=== PATIENT | female | born 1995 | race Caucasian/White ===

== ENCOUNTER → 2016-09-15 | Outpatient (CLI) | payer OTHER ==
[~2016-09-15] MED LIST: DROS1TAB21 PO; DROS1TAB24 PO
[2016-09-18 00:51] LABS: CHLAMYDIA TRACH RNA*** NOT DETECTED (NOT DETECTED); GC (NEIS GONORRHOEAE)RNA** NOT DETECTED (NOT DETECTED)
== END | disposition home or self-care (01) ==
LOC: C.LABSPEC 16:12
PROVIDERS: ATTEND Obstetrics & Gynecology
DX: Z11.3 Encounter for screening for infections with a predominantly sexual mode of transmission (principal)

== ENCOUNTER 2016-11-26 00:45 | Emergency (ER) | payer OTHER ==
[~2016-11-26] VITALS: Ht 160 cm; Wt 74.4 kg
[~2016-11-26 00:45] MED LIST changes: -DROS1TAB24 PO
[2016-11-26 00:50] VITALS: TEMP 36.9; Ht 160 cm; Wt 74.4 kg
[2016-11-26] MEDS ORDERED: SODIUM CHLORIDE 0.9% 1000ML 1,000 ML IV STA (01:26)
[2016-11-26] MEDS ORDERED: ONDANSETRON INJ 2 MG/ML 2 ML VIAL IV STA ×2 (01:26)
--- NOTE | 2016-11-26 01:27 | EMERGENCY ROOM VISIT NOTE ---
History Report prepared by Candace: Jayde Kahn Under the Supervision of: Dr. Sofiay Kelly D.O. First contact with patient: 00:54 Chief Complaint: VOMITING Stated Complaint: VOMITING,POSSILBE BLOOD IN IT,FEVER Nursing Triage Summary: pt vomiting since 2100, every 10 minutes. per aunt, "it looks like there is blood in it". pt reports abd pain, n/v, denies diarrhea. History of Present Illness The patient is a 21 year old female who presents to the Emergency Room with complaints of intermittent vomiting for the past 4 hours. She estimates that she was vomiting every 5 minutes but states that it has gradually slowed down. The last 3 times she has vomited it has been orange/brown with red streaks in it. Her aunt states that it looked like there could have been some blood in her emesis. The patient notes abdominal pain that she thinks is secondary to vomiting. She rates her current pain as a 5/10 in severity. The patient states that she was feeling fine all day and thinks that her symptoms are related to something that she ate. She had a turkey sandwich with [place] dressing for lunch and a Marnie bar and artichoke dip for dinner around 8pm (1 hour before her symptoms began). She denies diarrhea and leg cramping or swelling. She denies any alcohol use in the past two days. She denies any sick contacts. Her LNMP was two weeks ago. 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 A total of 10 systems reviewed and were otherwise negative. Past Medical & Surgical Medical Problems: (1) PNA (pneumonia) (2) Seasonal allergies Surgical Problems: (1) History of nasal surgery Family History Diabetes mellitus FHx: cancer Social History Smoking Status: Never Smoker Smokeless Tobacco Use: No Alcohol Use: none Marital Status: single Housing Status: lives with roommate Occupation Status: [employer] student Current/Historical Medications Scheduled Drospirenone-Ethinyl Estradiol (Crista), 1 TAB PO DAILY Allergies Coded Allergies: No Known Allergies (Unverified , 11/26/16) Physical Exam Vital Signs Date Time Temp Pulse Resp B/P Pulse Ox O2 Delivery O2 Flow Rate FiO2 3/31/17 02:59 94 20 122/82 97 Room Air 11/26/16 00:50 36.9 111 18 122/82 95 Room Air Physical Exam HEENT: Head - normocephalic and atraumatic Pupils are equal, round, and reactive to light. Extraocular eye muscles are intact, and sclera are anicteric. Nose - moist nasal mucosa without discharge. Mouth - moist buccal mucosa. Oropharynx is nonerythematous and there is no tonsillar exudate or edema noted. Neck: Supple; no JVD, nuchal rigidity, cervical lymphadenopathy. Heart: Regular rate and rhythm. There is a normal S1 and S2 with no murmurs, clicks, or gallops appreciated. Lungs: Clear to auscultation bilaterally with no wheezes, rales, or rhonchi. Abdomen: Soft, epigastric pain with palpation, nondistended, with good bowel sounds. There are no palpable pulsatile masses or hepatosplenomegaly. There is no guarding, rigidity, or rebound noted. Extremities: No evidence of cyanosis, clubbing, or edema. There are easily palpable peripheral pulses. Skin: warm and dry with good turgor and no rashes. Medical Decision & Procedures Laboratory Results 11/26/16 01:45 Red Blood Count 4.83, Mean Corpuscular Volume 79.3, Mean Corpuscular Hemoglobin 26.5, Mean Corpuscular Hemoglobin Concent 33.4, Mean Platelet Volume 8.9, Neutrophils (%) (Auto) 87.6, Lymphocytes (%) (Auto) 5.9, Monocytes (%) (Auto) 5.7, Eosinophils (%) (Auto) 0.3, Basophils (%) (Auto) 0.2, Neutrophils # (Auto) 13.33, Lymphocytes # (Auto) 0.89, Monocytes # (Auto) 0.87, Eosinophils # (Auto) 0.04, Basophils # (Auto) 0.03 11/26/16 01:45 Test 11/26/16 01:45 11/26/16 02:52 White Blood Count 15.20 K/uL (4.8-10.8) Red Blood Count 4.83 M/uL (4.2-5.4) Hemoglobin 12.8 g/dL (12.0-16.0) Hematocrit 38.3 % (37-47) Mean Corpuscular Volume 79.3 fL (80-100) Mean Corpuscular Hemoglobin 26.5 pg (25-34) Mean Corpuscular Hemoglobin Concent 33.4 g/dl (32-36) Platelet Count 324 K/uL (130-400) Mean Platelet Volume 8.9 fL (7.4-10.4) Neutrophils (%) (Auto) 87.6 % Lymphocytes (%) (Auto) 5.9 % Monocytes (%) (Auto) 5.7 % Eosinophils (%) (Auto) 0.3 % Basophils (%) (Auto) 0.2 % Neutrophils # (Auto) 13.33 K/uL (1.4-6.5) Lymphocytes # (Auto) 0.89 K/uL (1.2-3.4) Monocytes # (Auto) 0.87 K/uL (0.11-0.59) Eosinophils # (Auto) 0.04 K/uL (0-0.5) Basophils # (Auto) 0.03 K/uL (0-0.2) RDW Standard Deviation 36.5 fL (36.4-46.3) RDW Coefficient of Variation 12.6 % (11.5-14.5) Immature Granulocyte % (Auto) 0.3 % Immature Granulocyte # (Auto) 0.04 K/uL (0.00-0.02) Anion Gap 9.0 mmol/L (3-11) Est Creatinine Clear Calc Drug Dose 107.0 ml/min Estimated GFR () 121.2 Estimated GFR (Non- 104.6 BUN/Creatinine Ratio 14.6 (10-20) Calcium Level 8.5 mg/dl (8.5-10.1) Total Bilirubin 0.3 mg/dl (0.2-1) Direct Bilirubin < 0.1 mg/dl (0-0.2) Aspartate Amino Transf (AST/SGOT) 13 U/L (15-37) Alanine Aminotransferase (ALT/SGPT) 16 U/L (12-78) Alkaline Phosphatase 82 U/L (45-117) Total Protein 8.1 gm/dl (6.4-8.2) Albumin 3.6 gm/dl (3.4-5.0) Urine Color YELLOW Urine Appearance CLEAR (CLEAR) Urine pH 5.0 (4.5-7.5) Urine Specific [place] 1.034 (1.000-1.030) Urine Protein NEG (NEG) Urine Glucose (UA) NEG (NEG) Urine Ketones 1+ (NEG) Urine Occult Blood NEG (NEG) Urine Nitrite NEG (NEG) Urine Bilirubin NEG (NEG) Urine Urobilinogen NEG (NEG) Urine Leukocyte Esterase NEG (NEG) Urine Test NEG (NEG) Laboratory results per my review. Medications Administered Medications (Trade) Dose Ordered Sig/Anthony Route Start Time Stop Time Status Last Admin Dose Admin Ondansetron HCl 4 mg 4 mg NOW STAT IV 11/26/16 01:26 11/26/16 01:28 DC 11/26/16 01:51 4 MG Sodium Chloride (Nss 1000ml) 1,000 ml @ 999 mls/hr Q1H1M STAT IV 11/26/16 01:26 11/26/16 02:26 DC 11/26/16 01:51 999 MLS/HR Procedure Medications Administered: Zofran 4 mg IV NSS 1000 ml @ 999 mls/hr IV ED Course 0109: Past medical records reviewed. The patient was evaluated in room B8. A complete history and physical exam was performed. An IV lock was initiated and labs are drawn as above. 0126: Zofran 4 mg IV, NSS 1000 ml @ 999 mls/hr IV 0258: I reassessed the patient at this time. She is feeling better and resting comfortably. I discussed the results and treatment plan with the patient. I answered all pertaining questions that she had. She expressed understanding and verbalized agreement. The patient drank water without difficulty. She then had crackers and aviva marcos without difficulty. The patient will be discharged home. Medical Decision The patient is a 21 year old female who presents to the ED with intermittent vomiting. Differential diagnosis includes foodborne illness, gastritis, viral illness. Laboratory Interpretations: White count 15.2 Stable H&H Normal LFTs Normal glucose Normal renal function Urine was negative Urinalysis was positive for ketones Impression Primary Impression: Vomiting Scribe Attestation The scribe's documentation has been prepared under my direction and personally reviewed by me in its entirety. I confirm that the note above accurately reflects all work, treatment, procedures, and medical decision making performed by me. Departure Information Dispostion Home / Self-Care Referrals Kenisha Kelley MD (PCP) Forms HOME CARE DOCUMENTATION FORM, IMPORTANT VISIT INFORMATION Patient Instructions My [facility], Vomiting - [facility] Additional Instructions Rest. Take a bland diet and plenty of clear liquids Return to the ER if you vomit more blood. Problem Qualifiers Primary Impression: Vomiting Vomiting type: unspecified Vomiting Intractability: non-intractable Nausea presence: with nausea Qualified Codes: R11.2 - Nausea with vomiting, unspecified
[2016-11-26 01:53] LABS: BASO % 0.2 %; BASO ABS # 0.03 K/uL (0-0.2); COMPLETE YES; EOS % 0.3 %; HEMATOCRIT 38.3 % (37-47); IG% 0.3 %; LYMPH % 5.9 %; LYMPH ABS # 0.89 K/uL (1.2-3.4); MEAN CELL VOLUME 79.3 fL (80-100); MEAN CORPUSCULAR HEMOGLOBIN 26.5 pg (25-34); MEAN CORPUSCULAR HGB CONC 33.4 g/dl (32-36); MEAN PLATELET VOLUME 8.9 fL (7.4-10.4); MONO % 5.7 %; NEUT % 87.6 %; PLATELET COUNT 324 K/uL (130-400); RED BLOOD COUNT 4.83 M/uL (4.2-5.4)
[2016-11-26 02:11] LABS: ALT/SGPT 16 U/L (12-78); AST/SGOT 13 U/L (15-37); BLOOD UREA NITROGEN 12 mg/dl (7-18); BUN/CREATININE RATIO 14.6 (10-20); CALCIUM 8.5 mg/dl (8.5-10.1); CARBON DIOXIDE 24 mmol/L (21-32); CHLORIDE 107 mmol/L (98-107); CREATININE 0.81 mg/dl (0.60-1.20); GLUCOSE 101 mg/dl (70-99); POTASSIUM 3.9 mmol/L (3.5-5.1); SODIUM 140 mmol/L (136-145)
[2016-11-26 02:14] LABS: ALKALINE PHOSPHATASE 82 U/L (45-117)
[2016-11-26] MEDS ORDERED: DROS1TAB24 PO (02:23)
[2016-11-26 02:59] VITALS: BP 122/82; PULSE 94; O2SAT 97
[2016-11-26 03:06] LABS: URINE APPEARANCE CLEAR (CLEAR); URINE BILIRUBIN NEG (NEG); URINE COLOR YELLOW; URINE NITRITE NEG (NEG); URINE SPECIFIC GRAVITY 1.034 (1.000-1.030); UROBILINOGEN NEG (NEG)
[2016-11-26 03:11] LABS: MANUAL MICROSCOPIC REQUIRED? NO; REVIEW REQ? NO
== END 2016-11-26 03:19 | disposition home or self-care (01) ==
LOC: C.EDB 00:47
DX: R11.2 Nausea with vomiting, unspecified (principal); Z87.01 Personal history of pneumonia (recurrent); Z83.3 Family history of diabetes mellitus; Z80.9 Family history of malignant neoplasm, unspecified; Z79.3 Long term (current) use of hormonal contraceptives

== ENCOUNTER → 2017-09-19 | Outpatient (CLI) | payer OTHER ==
[~2017-09-19] MED LIST changes: -DROS1TAB21 PO; +DROS1TAB24 PO
== END | disposition home or self-care (01) ==
LOC: C.PAPS 11:37
PROVIDERS: ATTEND Physician Assistant
DX: Z12.4 Encounter for screening for malignant neoplasm of cervix (principal)

== ENCOUNTER → 2017-09-19 | Outpatient (CLI) | payer OTHER | END | disposition home or self-care (01) | LOC: C.LABSPEC 10:55 | PROVIDERS: ATTEND Physician Assistant | DX: Z11.3 Encounter for screening for infections with a predominantly sexual mode of transmission (principal); Z11.8 Encounter for screening for other infectious and parasitic diseases ==